=== PATIENT | female | born 1985 | race Caucasian/White ===

== ENCOUNTER 2017-11-10 12:34 | Emergency (ER) | payer MEDICAID, OTHER ==
[~2017-11-10] VITALS: Ht 154.9 cm; Wt 70.8 kg
[2017-11-10 13:09] VITALS: Ht 154.9 cm; Wt 70.8 kg
[2017-11-10] MEDS ORDERED: TETRACAINE 0.5% 4 ML OPH LEFT EYE ONE (15:30)
[2017-11-10] MEDS ORDERED: FLUORESCEIN STRIP LEFT EYE ONE (15:30)
[2017-11-10] MEDS ORDERED: POLY10DR19 LEFT EYE (16:02)
[2017-11-10] MEDS ORDERED: VIGA LEFT EYE (16:02)
--- NOTE | 2017-11-10 16:08 | ERD ---
ER Documentation Chief Complaint Chief Complaint left eye injury 4 days, yellowish discharge x 2 days ago HPI 32-year-old female states about 4 days ago she was "horse playing" with her friend and she had hit the left side of her head, causing black eye. She then developed discharge to the left eye starting yesterday that is yellowish colored. She has had swelling to the side of her head, and then she developed bruising around her eye but denies any visual changes, diplopia, or loss of vision. She did not experience any loss of consciousness, vomiting, or headaches. Patient denies wearing contact lenses or any corrective lenses. ROS All systems reviewed and are negative except as per history of present illness. Medications Home Meds Active Scripts Polymyxin B Sulfate-TMP* (Polymyxin B-TMP Eye Drops*) 10 Ml Drops, 1 DROP LEFT EYE QID for 7 Days, EA Prov:ISABEL SEYMOUR PA-C 11/10/17 Allergies Allergies: Coded Allergies: No Known Allergy (Unverified , 11/10/17) PMhx/Soc History of Surgery: No Anesthesia Reaction: No Hx Neurological Disorder: No Hx Respiratory Disorders: No Hx Cardiac Disorders: No Hx Psychiatric Problems: No Hx Miscellaneous Medical Probl: No Hx Alcohol Use: Yes Hx Substance Use: No Hx Tobacco Use: Yes Smoking Status: Current some day smoker Physical Exam Vitals Vital Signs Date Time Temp Pulse Resp B/P Pulse Ox O2 Delivery O2 Flow Rate FiO2 11/10/17 13:09 98.8 72 18 129/80 98 Physical Exam General: Well-developed, well-nourished. The patient appears in no acute distress. HEENT: Head is normocephalic, atraumatic. No scleral icterus. Left temporal scalp swelling and tenderness, no step-offs, no depressions. Extraocular movements intact, eyes are Neto. There is no tenderness around the left eye, there is periorbital ecchymosis to the upper and lower eyelid. Eye Exam: Visual Acuity: Right eye 20/20, left eye 20/25, bilateral 20/20 Visual Rivas: Intact in all four quadrants bilaterally Lac ducts/glands: No swelling Lids w/ evertion: Normal, no foreign body Conj/Abiquiu: Clear, negative Fluorescein/Katleyn's Anterior Chamber: Clear Tonopen readings: 20 and 21 Neck: Supple. Nontender. Lungs: Clear to auscultation. Normal air movement. Heart: Regular rate and rhythm. S1 and S2 are normal. No murmurs, gallops, or rubs. Abdomen: Nondistended. Extremities: No clubbing or cyanosis. Moving extremities x 4. No weakness. Neurologic: Alert and oriented 3. No focal deficits. Normal speech and gait. Skin: Normal turgor. No rash or lesions. Results 24 hrs Current Medications Medications (Trade) Dose Ordered Sig/Roxanne Route PRN Reason Start Time Stop Time Status Last Admin Dose Admin Fluorescein Sodium (Uwfqx-T-Mdada) 1 strip ONCE ONCE LEFT EYE 11/10/17 15:30 11/10/17 15:31 DC Tetracaine HCl (Tetracaine 0.5% Steri-Unit Sherley) 1 drop ONCE ONCE LEFT EYE 11/10/17 15:30 11/10/17 15:31 DC Procedures/MDM 32-year-old female comes in with a facial contusion, cannot rule out fracture at this time. The patient had gone to get a CT orbit and temporal bone but patient had refused just prior to the examination. She was made aware that she may have an underlying fracture, but at this time she does not want to go through with imaging. Differentials include temporal bone fracture, orbital fracture, entrapment, conjunctivitis, corneal abrasion, globe rupture. The patient's fluorescein staining shows no uptake, there is no ulcer, Katelyn sign, signs of rupture and her pressures are normal. There are no signs of traumatic iritis. There is crusting to the medial canthus of the left eye will be treated for conjunctivitis, without signs of periorbital or orbital cellulitis. The patient is to return if she has any worsening symptoms, including visual changes, headaches. Departure Diagnosis: Primary Impression: Facial contusion Additional Impression: Conjunctivitis, left eye Condition: Good Patient Instructions: Conjunctivitis, Bacterial, Facial Contusion, No Wakeup ISABEL SEYMOUR PA-C Nov 10, 2017 16:08
== END 2017-11-10 16:23 | disposition home or self-care (01) ==
LOC: FTE 12:34
DX: S00.83XA Contusion of other part of head, initial encounter (principal); H10.9 Unspecified conjunctivitis; F17.210 Nicotine dependence, cigarettes, uncomplicated; W22.8XXA Striking against or struck by other objects, initial encounter; Y92.9 Unspecified place or not applicable
CPT/HCPCS: Z7502; Z7610; 99283

== ENCOUNTER 2019-05-31 11:17 | Emergency (ER) | payer MEDICAID, OTHER ==
[~2019-05-31] VITALS: Ht 162.6 cm; Wt 77.1 kg
[~2019-05-31 11:17] MED LIST: POLY10DR19 LEFT EYE
[2019-05-31 11:23] VITALS: Ht 162.6 cm; Wt 77.1 kg
[2019-05-31] MEDS ORDERED: CIPR500T4 PO (13:35)
--- NOTE | 2019-05-31 13:36 | ERD ---
ER Documentation Chief Complaint Chief Complaint painful urination x 2 days HPI 34 year old females present with burning urination x 2 days. She denies noticing any blood in her urine. She states she thinks this feels like a UTI. She denies taking anything for her pain. She reports occasional suprapubic abd pain that radiates across her lower back. She denies any fevers, chills, difficulty breathing, or Chest pain. She states her pain is 6/10 intensity. The pain is worse with urination. ROS All systems reviewed and are negative except as per history of present illness. Medications Home Meds Active Scripts Ciprofloxacin Hcl* (Ciprofloxacin Hcl*) 500 Mg Tablet, 500 MG PO BID for 7 Days, TAB Prov:AGNIESZKA ARGUELLO PA-C 05/31/19 Polymyxin B Sulfate-TMP* (Polymyxin B-TMP Eye Drops*) 10 Ml Drops, 1 DROP LEFT EYE QID for 7 Days, EA Prov:ISABEL SEYMOUR PA-C 11/10/17 Allergies Allergies: Coded Allergies: No Known Allergy (Unverified , 11/10/17) PMhx/Soc Medical and Surgical Hx: pt denies Medical Hx, pt denies Surgical Hx History of Surgery: No Anesthesia Reaction: No Hx Neurological Disorder: No Hx Respiratory Disorders: No Hx Cardiac Disorders: No Hx Psychiatric Problems: No Hx Miscellaneous Medical Probl: No Hx Alcohol Use: Yes Hx Substance Use: No Hx Tobacco Use: Yes Smoking Status: Current every day smoker FmHx Family History: No diabetes Physical Exam Vitals Physical Exam Const: No acute distress Head: Atraumatic Eyes: Normal Conjunctiva ENT: Normal External Ears, Nose and Mouth. Neck: Full range of motion. No meningismus. Resp: Clear to auscultation bilaterally Cardio: Regular rate and rhythm, no murmurs Abd: Soft, slight tenderness to suprapubic region, non distended. Normal bowel sounds Skin: No petechiae or rashes Back: No midline or flank tenderness Ext: No cyanosis, or edema Neur: Awake and alert Psych: Normal Mood and Affect Results 24 hrs Laboratory Tests Test 05/31/19 12:30 05/31/19 12:31 05/31/19 12:48 Urine Color YELLOW Urine Clarity SLIGHTLY CLOUDY Urine pH 7.0 Urine Specific [place] 1.024 Urine Ketones NEGATIVE mg/dL Urine Nitrite NEGATIVE mg/dL Urine Bilirubin NEGATIVE mg/dL Urine Urobilinogen NEGATIVE mg/dL Urine Leukocyte Esterase NEGATIVE Greg/ul Urine Microscopic RBC 1 /HPF Urine Microscopic WBC 1 /HPF Urine Squamous Epithelial Cells FEW /HPF Urine Bacteria FEW /HPF Urine Mucus FEW /HPF Urine Hemoglobin 1+ mg/dL Urine Glucose NEGATIVE mg/dL Urine Total Protein NEGATIVE mg/dl POC Beta HCG, Qualitative NEGATIVE NEGATIVE Bedside Urine pH (LAB) 7.5 Bedside Urine Protein (LAB) Trace Bedside Urine Glucose (UA) Negative Bedside Urine Ketones (LAB) Negative Bedside Urine Blood Trace-lysed Bedside Urine Nitrite (LAB) Negative Bedside Urine Leukocyte Esterase (L Negative Procedures/MDM ED COURSE: The patient was stable throughout ED course. I kept the patient informed of laboratory and diagnostic imaging results throughout the ED course. DIAGNOSTIC IMAGING: none PROCEDURES: urinalysis MEDICATIONS GIVEN: [None.] Patient tolerated medication well with no adverse reactions. Patient reported improvement in pain. MEDICAL DECISION MAKING: Patient is a 34 year old female complaining of burning urination x 2 days. She states occasional suprapubic abd pain. She has not tried anything for her symptoms. She states she has concerns for a UTI. Urinalysis was performed and showed no nitrites or leukocyte esterase but due to the patients symptoms and her feeling like she is suffering from a UTI, I treated the pt with a prescription for Ciprofloxacin. test was negative. I have low suspicion for , ectopic , molar , pyelonephritis, diverticulitis, appendicitis. Her Vital signs were reviewed. Patient is afebrile. Patient was not hypoxic. Patient was hemodynamically stable. Patient was told to follow up with primary care for further care and management. PRESCRIPTION: ciprofloxacin DISCHARGE: At this time, patient is stable for discharge and outpatient management. I have instructed the patient to follow-up with his/her primary care physician in 1-2 days. I have discussed with the patient the possibility of needing to see a specialist for further workup and imaging studies if symptoms persist. I have instructed the patient to promptly return to the ER for any new or worsening symptoms including increased pain, fever, nausea, vomiting, weakness or LOC. The patient expressed understanding of and agreement with this plan. All questions were answered. Home care instructions were provided. Disclaimer: Inadvertent spelling and grammatical errors are likely due to EHR/dictation software use and do not reflect on the overall quality of patient care. Also, please note that the electronic time recorded on this note does not necessarily reflect the actual time of the patient encounter. Departure Diagnosis: Primary Impression: UTI (urinary tract infection) Urinary tract infection type: acute cystitis Hematuria presence: with hematuria Qualified Codes: N30.01 - Acute cystitis with hematuria Condition: Fair Patient Instructions: Understanding Urinary Tract Infections (UTIs) Referrals: [facility] YOU HAVE RECEIVED A MEDICAL SCREENING EXAM AND THE RESULTS INDICATE THAT YOU DO NOT HAVE A CONDITION THAT REQUIRES URGENT TREATMENT IN THE EMERGENCY DEPARTMENT. FURTHER EVALUATION AND TREATMENT OF YOUR CONDITION CAN WAIT UNTIL YOU ARE SEEN IN YOUR DOCTORS OFFICE WITHIN THE NEXT 1-2 DAYS. IT IS YOUR RESPONSIBILITY TO M SMITA AN APPOINTMENT FOR FOLOW-UP CARE. IF YOU HAVE A PRIMARY DOCTOR --you should call your primary doctor and schedule an appointment IF YOU DO NOT HAVE A PRIMARY DOCTOR YOU CAN CALL OUR PHYSICIAN REFERRAL HOTLINE AT IF YOU CAN NOT AFFORD TO SEE A PHYSICIAN YOU CAN CHOSE FROM THE FOLLOWING [facility] [address] [facility]. [facility] [address] [facility] [address] [facility] [facility] [address] [facility] [facility] [address] [facility]. [facility]. [address] [facility] [facility] YOU HAVE RECEIVED A MEDICAL SCREENING EXAM AND THE RESULTS INDICATE THAT YOU DO NOT HAVE A CONDITION THAT REQUIRES URGENT TREATMENT IN THE EMERGENCY DEPARTMENT. FURTHER EVALUATION AND TREATMENT OF YOUR CONDITION CAN WAIT UNTIL YOU ARE SEEN IN YOUR DOCTORS OFFICE WITHIN THE NEXT 1-2 DAYS. IT IS YOUR RESPONSIBILITY TO MAKE AN APPOINTMENT FOR FOLOW-UP CARE. IF YOU HAVE A PRIMARY DOCTOR --you should call your primary doctor and schedule and appointment IF YOU DO NOT HAVE A PRIMARY DOCTOR YOU CAN CALL OUR PHYSICIAN REFERRAL HOTLINE AT . IF YOU CAN NOT AFFORD TO SEE A PHYSICIAN YOU CAN CHOSE FROM THE FOLLOWING [facility] INSTITUTIONS: [facility] [address] [place] [address] [facility] [address] [place] [address] [facility] [address] [place] [address] Additional Instructions: Call your primary care doctor TOMORROW for an appointment during the next 1-2 days.See the doctor sooner or return here if your condition worsens before your appointment time. AGNIESZKA ARGUELLO PA-C May 31, 2019 13:36
[2019-05-31 13:42] VITALS: BP 115/65; PULSE 66; RESP 18
== END 2019-05-31 13:42 | disposition home or self-care (01) ==
LOC: FTE 11:17
DX: N30.01 Acute cystitis with hematuria (principal); F17.210 Nicotine dependence, cigarettes, uncomplicated
CPT/HCPCS: 81001; 81025; Z7502; 81003; 99283